=== PATIENT | female | born 1960 | race Caucasian/White ===

== ENCOUNTER → 2018-01-01 | Day surgery (SDC) | payer BC ==
[~2018-01-01] MED LIST: B12; CALCIUM 500+D1 EACH; FENTANYL CITRATE/PF 100MCG/2 ML INJ ONE; HYOSCYAMINE SULFATE 0.5 MG/ML INJ ONE; LIDOCAINE HCL 2% LOCAL INJ 5 ML SDV VIAL INJ ONE; MIDAZOLAM HCL 2 MG/2 ML VIAL ONE; MULTIVITAMINS1 EAC6; OMEGA 3 1,0001 EACH; PROPOFOL IV EMULSION 10 MG/ML 50 ML VIAL ONE; VITAMIN C100 MG; VITAMIN D400 UNIT PO
--- NOTE | 2018-02-08 23:05 | Operative Report ---
DATE OF PROCEDURE: January 01, 2018 REFERRING PHYSICIAN: Dr. Zaid Pro. PROCEDURE PERFORMED: Colonoscopy with biopsies. INDICATIONS FOR COLONOSCOPY: Colorectal cancer screening. MEDICATION: Patient was done under MAC. Please see anesthesiologist's note. PROCEDURE: With patient in left lateral decubitus position, the flexible fiberoptic Olympus colonoscope was inserted into the rectum with ease and advanced all the way to the cecum. Ileocecal valve was intubated and the scope was advanced into the terminal ileum. There was some patchy inflammation noted in the terminal ileum. Mucosal biopsies were obtained. The scope was then withdrawn back into the colon. It was then withdrawn slowly. Mucosa overlying the ascending, the transverse, and descending appeared to be within normal limits. Minimal diverticular disease was noted in the sigmoid colon. The rectum appeared to be within normal limits. The scope was then retroflexed into the distal rectum and small internal hemorrhoids were noted none of which was actively bleeding. The scope was then straightened out. It was subsequently withdrawn. Patient tolerated the procedure well. IMPRESSIONS 1. Diverticulosis, minimal. 2. Internal hemorrhoids, none actively bleeding. PLAN: Follow up histology. Initiate high-fiber and low-fat diet. Initiate high-fiber supplement. Patient might benefit from a followup colonoscopy in 5 to 10 years. Job#: [id number] CQ cc:KATHY PRO DO
== END | disposition home or self-care (01) ==
LOC: OR 11:32
PROVIDERS: ATTEND Internal Medicine Gastroenterology
DX: Z12.11 Encounter for screening for malignant neoplasm of colon (principal); R10.31 Right lower quadrant pain; Z80.0 Family history of malignant neoplasm of digestive organs; K57.30 Diverticulosis of large intestine without perforation or abscess without bleeding; K64.8 Other hemorrhoids
CPT/HCPCS: 45380; 81025; 93005; J1980; J2001; J2250; 45378